=== PATIENT | male | born 1950 | race Caucasian/White ===

== ENCOUNTER 2018-09-22 09:39 | Inpatient (IN) | payer MEDICARE, BC ==
[~2018-09-22] VITALS: Ht 177.8 cm; Wt 73.9 kg
[2018-09-22] MEDS ORDERED: LIDOCAINE 2% JEL UROJET 10 ML MM ONE (09:52)
--- NOTE | 2018-09-22 09:55 | NUR ---
NOSEBLEED SINCE 0800 S/P GLF AFTER GETTING DIZZY. DENIES SYNCOPAL EPISODE, PT WENT TO [facility] AND WAS TOLD TO GO TO ER. PT STABLE
[2018-09-22] MEDS ORDERED: LIDOCAINE VISCOUS 2% UD 15 ML UDC MM ONE (10:00)
[2018-09-22 10:14] LABS: BASOPHILS % (AUTO) 0.3 % (0.0-2.0); EOSINOPHILS % (AUTO) 1.2 % (0.0-6.0); HEMATOCRIT 30 % (39-51); HEMOGLOBIN 9.8 g/dL (13.5-17.5); LYMPHOCYTES % (AUTO) 21.3 % (20.0-44.0); MEAN CORPUSCULAR HGB CONC 33 g/dl (31.0-36.0); MEAN CORPUSCULAR VOLUME 85 fL (80-96); MONOCYTES # (AUTO) 0.4 /CMM (0.1-1.30); MONOCYTES % (AUTO) 8.8 % (2.0-12.0); NEUTROPHILS # (AUTO) 3.2 /CMM (1.8-8.9); NEUTROPHILS % (AUTO) 68.4 % (43.0-81.0); PLATELET COUNT (AUTO) 143 /CMM (150-450); WHITE BLOOD COUNT (AUTO) 4.7 K/uL (4.3-11.0)
[2018-09-22] MEDS ORDERED: LIDOCAINE VISCOUS 2% UD 15 ML UDC ONE (10:14)
[2018-09-22 10:30] LABS: CALCIUM, SERUM 8.8 mg/dL (8.5-10.1); CREATININE 1.1 mg/dL (0.6-1.3); POTASSIUM 4.3 mmol/L (3.5-5.1)
--- NOTE | 2018-09-22 11:25 | NUR ---
PT WAS BEING DCM, WENT TO RESTOOM, REPORTED FEELING DIZZY, BEGAN TO SLIDE TO FALL , WAS CAUGHT BY EMT BHUPENDRA, PT CONFUSED AT THE TIME, PLACE IN [facility] BED, GIVEN O2, VITALS TAKEN NOW AAXO, DR. SOW AWARE. PT AWAKE AND STABLE
--- NOTE | 2018-09-22 11:29 | NUR ---
IV LINE INSERTED, LABS DRAWNED AND SENT TO LAB.
[2018-09-22] MEDS ORDERED: IV NS 0.9% 1,000 ML BAG IV ONE (11:30)
[2018-09-22] MEDS ORDERED: DOXA1TAB2 PO (11:55)
[2018-09-22] MEDS ORDERED: DUTA0.5C PO (11:55)
[2018-09-22] MEDS ORDERED: ATOR40TA PO (11:55)
[2018-09-22] MEDS ORDERED: METO25TA3 PO (11:55)
[2018-09-22] MEDS ORDERED: CITA20TA19 PO (11:55)
[2018-09-22] MEDS ORDERED: CLOP75TA15 PO (11:55)
[2018-09-22] MEDS ORDERED: BUPR1FIL SL (11:55)
[2018-09-22] MEDS ORDERED: ASCO500T9 PO (11:55)
[2018-09-22] MEDS ORDERED: FERR325T23 PO (11:55)
[2018-09-22] MEDS ORDERED: SENN-168 PO (11:55)
[2018-09-22] MEDS ORDERED: ASPI-1169 PO (11:55)
--- NOTE | 2018-09-22 13:00 | NUR ---
PT BEING TRANSFERED TO ROOM 320-2,REPORT GIVEN TO SHAWNEE CRUZ
[2018-09-22] MEDS ORDERED: HYDROCODONE/APAP 5/325MG 1 EACH TABLET PO PRN (15:00)
[2018-09-22] MEDS ORDERED: Z GUARD REMEDY 2 OZ OINT TP PRN (15:00)
[2018-09-22] MEDS ORDERED: ZOLPIDEM TARTRATE 5 MG TABLET PO PRN (15:00)
[2018-09-22] MEDS ORDERED: MAG HYDROX/AL HYDROX/SIMETH 30 ML UDC PO PRN (15:00)
[2018-09-22] MEDS ORDERED: MAGNESIUM HYDROXIDE 30 ML UDC PO PRN (15:00)
[2018-09-22] MEDS ORDERED: ONDANSETRON HCL/PF 4 MG/2 ML VIAL IVP PRN (15:00)
--- NOTE | 2018-09-22 15:10 | NUR ---
RECEIVED PATIENT FROM ER VIA [facility]. PATIENT A/OX4, ABLE TO MAKE NEEDS KNOWN. AMBULATORY WITH ASSIST, WALKED FROM [facility] TO BED. TOLERATED ROOM AIR. VITAL SIGNS STABLE. ALL BELONGINGS AT BEDSIDE, CHECKLIST DONE BY ROSEANN JONES. PLACE ON TELEMONITOR,SR 80. NOT IN ANY FORM OF DISTRESS, NO SOB. DENIED PAIN OR DISCOMFORT AT THIS TIME. IV ACCESS ON RIGHT AC GAUGE 20 INTACT AND PATENT. SKIN CHECK DONE, PICTURE TAKEN. NO SACRAL REDNESS, NO OPEN WOUNDS IN THE OTHER PARTS OF THE BODY, ABRASSION ON RIGHT SIDE OF THE NOSE NOTED DUE TO FALL AT HOME. KEPT PATIENT SAFE AND COMFORTABLE. BED IN LOW/LOCKED POSITION SIDERAISL UP, HOB ELEVATED. WILL MONITOR ACCORDINGLY.
[2018-09-22] MEDS ORDERED: IV 1/2NS 1000 ML 1,000 ML IV ONE (15:30)
[2018-09-22] MEDS: ACETAMINOPHEN 325 MG TABLET PO PRN ×2 (15:51→22:53)
[2018-09-22 15:52] LABS: IRON, SERUM 56 ug/dl (50-175); TOTAL IRON BINDING CAPACITY 282 ug/dl (250-450)
[2018-09-22 16:00] VITALS: BP 98/57
[2018-09-22] MEDS: CITALOPRAM HYDROBROMIDE 20 MG TABLET PO SCH (17:57)
--- NOTE | 2018-09-22 19:07 | NUR ---
RN CLOSING NOTES PATIENT IN STABLE CONDITION. ALL NEEDS ATTENDED AND PROVIDED. ALL MEDICATIONS ADMINISTERED ORDERED. KEPT PATIENT SAFE AND COMFORTABLE. BED IN LOW/LOCKED POSITION, SIDERAISL UPX2, CALL LIGHT IN REACH. HOB ELEVATED. ENDORSED TO NIGHT RN FOR ROSALIND.
--- NOTE | 2018-09-22 19:28 | NUR ---
GYRO COMPASS TESTER RECEIVED PT ON BED, A/O X 3, SR 68. NOT IN ANY FORM OF DISTRESS, RESPIRATIONS EVEN AND UNLABORED, NO SOB NOTED, STABLE CONDITION. SAFETY MEASURES IN PLACE. WILL CONTINUE TO MONITOR.
[2018-09-22 20:00] VITALS: BP 111/61
[2018-09-22 20:23] VITALS: BP 111/61
[2018-09-22] MEDS ORDERED: KEY,NONCONTROL,TO KEEP IN PYXI 1 EA MC ONE (20:25)
[2018-09-22] MEDS: SUBOXONE SL PRN (20:26)
[2018-09-22 23:50] VITALS: BP 149/56
[2018-09-23] VITALS (9 sets, daily range): BP systolic 74–149; BP diastolic 43–77
[2018-09-23] MEDS: SUBOXONE SL PRN ×3 (05:37→21:26)
[2018-09-23] MEDS: ACETAMINOPHEN 325 MG TABLET PO PRN ×3 (05:37→20:11)
--- NOTE | 2018-09-23 06:06 | NUR ---
RN CLOSING NOTE ASLEEP AND EASILY AWAKEN, SR 72 IN THE TELE MONITOR. R NARES NASAL RHINO PACKING INTACT, NOT IN DISTRESS. STABLE, RESPIRATIONS EVEN AND UNLABORED. NURSING CARE RENDERED, KEPT CLEAN AND DRY AND COMFORT, NEEDS ATTENDED AND ANTICIPATED. SAFETY MEASURES IN PLACE, CALL LIGHT WITHIN REACH. WILL ENDORSE TO THE NEXT SHIFT.
[2018-09-23 07:17] LABS: BASOPHILS % (AUTO) 0.3 % (0.0-2.0); HEMATOCRIT 25 % (39-51); HEMOGLOBIN 8.5 g/dL (13.5-17.5); LYMPHOCYTES # (AUTO) 1.6 /CMM (0.8-4.8); LYMPHOCYTES % (AUTO) 28.6 % (20.0-44.0); MEAN CORPUSCULAR HGB CONC 34 g/dl (31.0-36.0); MEAN CORPUSCULAR VOLUME 84 fL (80-96); MONOCYTES # (AUTO) 0.5 /CMM (0.1-1.30); MONOCYTES % (AUTO) 9.4 % (2.0-12.0); NEUTROPHILS # (AUTO) 3.3 /CMM (1.8-8.9); NEUTROPHILS % (AUTO) 60.7 % (43.0-81.0); PLATELET COUNT (AUTO) 129 /CMM (150-450); RED BLOOD CELL COUNT(AUTO) 2.95 MIL/uL (4.5-6.0); WHITE BLOOD COUNT (AUTO) 5.5 K/uL (4.3-11.0)
[2018-09-23 07:49] LABS: THYROID STIMULATING HORMONE 0.731 uIU/mL (0.358-3.74)
[2018-09-23 07:50] LABS: ALBUMIN 3.1 g/dL (3.4-5.0); BILIRUBIN,TOTAL 0.6 mg/dL (0.2-1.0); CALCIUM, SERUM 8.7 mg/dL (8.5-10.1); MAGNESIUM 1.8 mg/dL (1.8-2.4); POTASSIUM 3.6 mmol/L (3.5-5.1); TOTAL PROTEIN, SERUM 5.8 g/dL (6.4-8.2)
--- NOTE | 2018-09-23 07:55 | NUR ---
PAPERBOARD MACHINE OPERATOR OPENING NOTE RECEIVED PATIENT IN BED. SLEEPING, EASILY AROUSED WITH VERBAL STIMULI, ORIENTED X4. ON ROOM AIR, TOLERATING WELL. IN NO APPARENT DISTRESS OR DISCOMFORT AT THIS TIME. RESPIRATIONS EVEN AND UNLABORED. DENIES PAIN AND SOB AT THIS TIME. PATIENT IS ABLE TO COMMUNICATE NEEDS. ON TELE MONITORING WITH SR AND HR IN 60S. IV ACCESS ON RIGHT AC 18G, SL, PATENT AND INTACT. PATIENT KEPT CLEAN AND COMFORTABLE. SAFETY MEASURES IN PLACE, BED IN LOW LOCKED POSITION, SIDE RAILS UP X2, CALL LIGHT WITHIN EASY REACH. WILL CONTINUE TO MONITOR.
[2018-09-23] MEDS: DOXAZOSIN MESYLATE (1 MG) 1 MG TABLET PO SCH (08:41)
[2018-09-23] MEDS: DUTASTERIDE (0.5 MG) 0.5 MG CAPSULE PO SCH (08:41)
[2018-09-23] MEDS: ATORVASTATIN 40 MG TABLET PO SCH (08:41)
[2018-09-23] MEDS: FERROUS SULFATE (325 MG) 325 MG/TAB TABLET PO SCH (08:42)
[2018-09-23] MEDS: ASCORBIC ACID 500 MG TABLET PO SCH (08:42)
[2018-09-23] MEDS: PANTOPRAZOLE 40 MG TABLET.DR PO SCH (08:44)
--- NOTE | 2018-09-23 11:36 | NUR ---
WOUND CARE CONSULT: PT PRESENTS WITH DRY ABRASION TO SIDE OF NOSE, PRESENT ON ADMISSION. NO DRAINAGE NOTED. WILL SEE PRN.
[2018-09-23] MEDS ORDERED: KEY,NONCONTROL,TO KEEP IN PYXI 1 EA MC ONE ×4 (16:54→21:23)
[2018-09-23] MEDS: CITALOPRAM HYDROBROMIDE 20 MG TABLET PO SCH (17:06)
--- NOTE | 2018-09-23 17:13 | NUR ---
PATIENT REQUESTED HOME MEDICATION SUBOXON FOR NEUROPATHIC PAIN 5/10 IN LOWER EXTREMITIES. MEDICATION OBTAINED FROM [employer] WITH THE DEDICATED FATIMA. COUNTED 2 DOSES LEFT IN THE LOCKED BOX. REMOVED ONE DOSE. REMAINING 1 DOSE OF SUBOXON IN THE OMNICELL. RETURNED FATIMA TO THE [employer] AFTER USE.
--- NOTE | 2018-09-23 19:09 | NUR ---
MS RN RECEIVED PT ON BED, A/O X 3, NOT IN ANY FORM OF DISTRESS, RESPIRATIONS EVEN AND UNLABORED, NO SOB NOTED, STABLE CONDITION. SAFETY MEASURES IN PLACE. WILL CONTINUE TO MONITOR.
--- NOTE | 2018-09-23 19:34 | NUR ---
MS RN CLOSING NOTE PATIENT IN BED. ALERT ORIENTED X4. ON ROOM AIR, TOLERATING WELL. IN NO APPARENT DISTRESS OR DISCOMFORT AT THIS TIME. RESPIRATIONS EVEN AND UNLABORED. DENIES PAIN AND SOB AT THIS TIME. PATIENT IS ABLE TO COMMUNICATE NEEDS. IV ACCESS ON RIGHT AC 18G, SL, PATENT AND INTACT. PATIENT KEPT CLEAN AND COMFORTABLE. ALL NEEDS ATTENDED. SAFETY MEASURES IN PLACE, BED IN LOW LOCKED POSITION, SIDE RAILS UP X2, CALL LIGHT WITHIN EASY REACH. WILL ENDORSE TO PM NURSE FOR ROSALIND.
--- NOTE | 2018-09-24 06:09 | NUR ---
RN CLOSING NOTE ASLEEP AND EASILY AWAKEN, NOT IN DISTRESS. TOLERATING ROOM AIR 97%. NO EPISTAXIS. RESPIRATIONS EVEN AND UNLABORED. NURSING CARE RENDERED, KEPT CLEAN AND DRY AND COMFORT, NEEDS ATTENDED AND ANTICIPATED. SAFETY MEASURES IN PLACE, CALL LIGHT WITHIN REACH. WILL ENDORSE TO THE NEXT SHIFT.
--- NOTE | 2018-09-24 07:45 | NUR ---
MS RN OPENING NOTE PATIENT IN BED. ALERT ORIENTED X4. ON ROOM AIR, TOLERATING WELL. IN NO APPARENT DISTRESS OR DISCOMFORT AT THIS TIME. RESPIRATIONS EVEN AND UNLABORED. DENIES PAIN AND SOB AT THIS TIME. PATIENT IS ABLE TO COMMUNICATE NEEDS. NASAL PACK STILL IN PLACE, REPORTS MILD BLEEDING STILL. IV ACCESS ON RIGHT AC 18G, SL, PATENT AND INTACT. PATIENT KEPT CLEAN AND COMFORTABLE. ALL NEEDS ATTENDED. SAFETY MEASURES IN PLACE, BED IN LOW LOCKED POSITION, SIDE RAILS UP X2, CALL LIGHT WITHIN EASY REACH. WILL CONTINUE TO MONITOR.
[2018-09-24 08:00] VITALS: BP 126/90
[2018-09-24] MEDS: DOXAZOSIN MESYLATE (1 MG) 1 MG TABLET PO SCH (08:50)
[2018-09-24] MEDS: FERROUS SULFATE (325 MG) 325 MG/TAB TABLET PO SCH (08:50)
[2018-09-24] MEDS: DUTASTERIDE (0.5 MG) 0.5 MG CAPSULE PO SCH (08:50)
[2018-09-24] MEDS: ASCORBIC ACID 500 MG TABLET PO SCH (08:50)
[2018-09-24] MEDS: ATORVASTATIN 40 MG TABLET PO SCH (08:50)
[2018-09-24] MEDS: PANTOPRAZOLE 40 MG TABLET.DR PO SCH (08:50)
[2018-09-24] MEDS: ACETAMINOPHEN 325 MG TABLET PO PRN ×3 (08:58→22:28)
[2018-09-24 09:26] LABS: BASOPHILS % (AUTO) 0.5 % (0.0-2.0); EOSINOPHILS % (AUTO) 1.3 % (0.0-6.0); HEMATOCRIT 24 % (39-51); HEMOGLOBIN 8.1 g/dL (13.5-17.5); LYMPHOCYTES # (AUTO) 1.5 /CMM (0.8-4.8); LYMPHOCYTES % (AUTO) 30.6 % (20.0-44.0); MEAN CORPUSCULAR HGB CONC 34 g/dl (31.0-36.0); MEAN CORPUSCULAR VOLUME 85 fL (80-96); MONOCYTES # (AUTO) 0.5 /CMM (0.1-1.30); MONOCYTES % (AUTO) 10.4 % (2.0-12.0); NEUTROPHILS # (AUTO) 2.8 /CMM (1.8-8.9); NEUTROPHILS % (AUTO) 57.2 % (43.0-81.0); PLATELET COUNT (AUTO) 132 /CMM (150-450); RED BLOOD CELL COUNT(AUTO) 2.86 MIL/uL (4.5-6.0)
[2018-09-24] MEDS ORDERED: IV NS 0.9% 1,000 ML BAG IV ONE (09:30)
[2018-09-24 10:18] LABS: IRON, SERUM 51 ug/dl (50-175); TOTAL IRON BINDING CAPACITY 276 ug/dl (250-450)
--- NOTE | 2018-09-24 15:56 | NUR ---
PER DR. GRANDA HOLD FECAL OB AT THIS TIME. NO NEED TO COLLECT SAMPLE.
[2018-09-24 16:00] VITALS: BP 129/62
[2018-09-24] MEDS: CITALOPRAM HYDROBROMIDE 20 MG TABLET PO SCH (17:31)
[2018-09-24] MEDS: GLUCERNA SHAKE 237 ML CAN PO SCH (17:44)
--- NOTE | 2018-09-24 18:34 | NUR ---
MS RN CLOSING NOTE PATIENT IN BED. ALERT ORIENTED X4. ON ROOM AIR, TOLERATING WELL. IN NO APPARENT DISTRESS OR DISCOMFORT AT THIS TIME. RESPIRATIONS EVEN AND UNLABORED. DENIES PAIN AND SOB AT THIS TIME. PATIENT IS ABLE TO COMMUNICATE NEEDS. IV ACCESS ON RIGHT FA 20G, WITH FLUIDS RUNNING AT 125ML/HR, PATENT AND INTACT. PATIENT KEPT CLEAN AND COMFORTABLE. ALL NEEDS ATTENDED. SAFETY MEASURES IN PLACE, BED IN LOW LOCKED POSITION, SIDE RAILS UP X2, CALL LIGHT WITHIN EASY REACH. WILL ENDORSE TO PM NURSE FOR ROSALIND.
--- NOTE | 2018-09-24 19:00 | NUR ---
MS RN AWAKE WATCHING TV. A/O X 3, TOLERATING ROOM AIR 98%. NOT IN ANY FORM OF DISTRESS, RESPIRATIONS EVEN AND UNLABORED, NO SOB NOTED, STABLE CONDITION. SAFETY MEASURES IN PLACE. WILL CONTINUE TO MONITOR.
[2018-09-24 20:00] VITALS: BP 116/58
[2018-09-24] MEDS: IV NS 0.9% 1,000 ML IV PRN (20:20)
[2018-09-25] MEDS: IV NS 0.9% 1,000 ML IV PRN ×2 (04:33→21:10)
--- NOTE | 2018-09-25 06:09 | NUR ---
RN CLOSING NOTE PT IN BED ASLEEP AND EASILY AWAKEN, RESPIRATIONS EVEN AND UNLABORED. KEPT CLEAN AND DRY AND COMFORT, NEEDS ATTENDED AND ANTICIPATED. NURSING CARE RENDERED. NO S/S OF BLEEDING. SAFETY MEASURES IN PLACE, CALL LIGHT WITHIN REACH. WILL ENDORSE TO THE NEXT SHIFT.
[2018-09-25 07:43] LABS: BASOPHILS % (AUTO) 0.4 % (0.0-2.0); EOSINOPHILS % (AUTO) 2.1 % (0.0-6.0); HEMATOCRIT 22 % (39-51); HEMOGLOBIN 7.5 g/dL (13.5-17.5); LYMPHOCYTES # (AUTO) 1.5 /CMM (0.8-4.8); LYMPHOCYTES % (AUTO) 36.1 % (20.0-44.0); MEAN CORPUSCULAR HGB CONC 34 g/dl (31.0-36.0); MEAN CORPUSCULAR VOLUME 85 fL (80-96); MONOCYTES # (AUTO) 0.5 /CMM (0.1-1.30); MONOCYTES % (AUTO) 10.7 % (2.0-12.0); NEUTROPHILS # (AUTO) 2.1 /CMM (1.8-8.9); NEUTROPHILS % (AUTO) 50.7 % (43.0-81.0); PLATELET COUNT (AUTO) 123 /CMM (150-450); RED BLOOD CELL COUNT(AUTO) 2.61 MIL/uL (4.5-6.0); WHITE BLOOD COUNT (AUTO) 4.2 K/uL (4.3-11.0)
--- NOTE | 2018-09-25 07:47 | NUR ---
MS RN OPENING NOTE PATIENT IN BED. ALERT ORIENTED X4. ON ROOM AIR, TOLERATING WELL. IN NO APPARENT DISTRESS OR DISCOMFORT AT THIS TIME. RESPIRATIONS EVEN AND UNLABORED. DENIES PAIN AND SOB AT THIS TIME. PATIENT IS ABLE TO COMMUNICATE NEEDS. NASAL PACK STILL IN PLACE, REPORTS MILD BLEEDING STILL. IV ACCESS ON RIGHT RIGHT FA 20G, WITH FLUIDS RUNNING AT 125ML/HR, PATENT AND INTACT. PATIENT KEPT CLEAN AND COMFORTABLE. ALL NEEDS ATTENDED. SAFETY MEASURES IN PLACE, BED IN LOW LOCKED POSITION, SIDE RAILS UP X2, CALL LIGHT WITHIN EASY REACH. WILL CONTINUE TO MONITOR.
[2018-09-25 07:59] LABS: ALBUMIN 2.9 g/dL (3.4-5.0); BILIRUBIN,TOTAL 0.3 mg/dL (0.2-1.0); CALCIUM, SERUM 8.6 mg/dL (8.5-10.1); CREATININE 0.9 mg/dL (0.6-1.3); PHOSPHORUS 3.6 mg/dL (2.5-4.9); POTASSIUM 4.9 mmol/L (3.5-5.1); TOTAL PROTEIN, SERUM 5.5 g/dL (6.4-8.2)
[2018-09-25 08:00] VITALS: BP 132/67
[2018-09-25] MEDS: ASCORBIC ACID 500 MG TABLET PO SCH (08:48)
[2018-09-25] MEDS: DUTASTERIDE (0.5 MG) 0.5 MG CAPSULE PO SCH (08:48)
[2018-09-25] MEDS: ATORVASTATIN 40 MG TABLET PO SCH (08:48)
[2018-09-25] MEDS: PANTOPRAZOLE 40 MG TABLET.DR PO SCH (08:48)
[2018-09-25] MEDS: ACETAMINOPHEN 325 MG TABLET PO PRN ×2 (08:49→17:16)
[2018-09-25] MEDS: DOXAZOSIN MESYLATE (1 MG) 1 MG TABLET PO SCH (08:49)
[2018-09-25] MEDS: FERROUS SULFATE (325 MG) 325 MG/TAB TABLET PO SCH (08:49)
[2018-09-25] MEDS: GLUCERNA SHAKE 237 ML CAN PO SCH ×3 (08:49→17:00)
[2018-09-25 16:00] VITALS: BP 147/72
[2018-09-25] MEDS: CITALOPRAM HYDROBROMIDE 20 MG TABLET PO SCH (17:17)
--- NOTE | 2018-09-25 19:28 | NUR ---
MS RN PT RECEIVE IN BED. A/O X 3. NOT IN ANY FORM OF DISTRESS, RESPIRATIONS EVEN AND UNLABORED, NO SOB NOTED, STABLE CONDITION. SAFETY MEASURES IN PLACE. WILL CONTINUE TO MONITOR.
[2018-09-25 20:00] VITALS: BP 141/67
[2018-09-25] MEDS ORDERED: BISACODYL (5 MG) 5 MG TABLET.DR PO ONE (21:00)
[2018-09-25] MEDS ORDERED: PEG 3350/NA SULF,BICARB,CL/KCL 4,000 ML BOTTLE PO ONE (21:00)
--- NOTE | 2018-09-26 06:01 | NUR ---
RN CLOSING NOTE AWAKE IN BED WATCHING TV, MAINTAINS NPO, CONSUMED GO-KRISS PREP DEFECATION IS BROWNISH LIQUID. WILL MTR. MAINTAINS NPO MIDNIGHT. NO COMPLAIN OF PAIN, NO S/S OF BLEEDING. KEPT CLEAN AND DRY AND COMFORT, NEEDS ATTENDED AND ANTICIPATED. NURSING CARE RENDERED. . SAFETY MEASURES IN PLACE, CALL LIGHT WITHIN REACH. WILL ENDORSE TO THE NEXT SHIFT.
[2018-09-26] MEDS: IV NS 0.9% 1,000 ML IV PRN (06:23)
[2018-09-26 07:23] LABS: BASOPHILS % (AUTO) 0.4 % (0.0-2.0); EOSINOPHILS % (AUTO) 2.2 % (0.0-6.0); HEMATOCRIT 22 % (39-51); HEMOGLOBIN 7.4 g/dL (13.5-17.5); LYMPHOCYTES # (AUTO) 1.4 /CMM (0.8-4.8); LYMPHOCYTES % (AUTO) 35.7 % (20.0-44.0); MEAN CORPUSCULAR HGB CONC 34 g/dl (31.0-36.0); MEAN CORPUSCULAR VOLUME 86 fL (80-96); MONOCYTES # (AUTO) 0.4 /CMM (0.1-1.30); MONOCYTES % (AUTO) 10.4 % (2.0-12.0); NEUTROPHILS % (AUTO) 51.3 % (43.0-81.0); PLATELET COUNT (AUTO) 135 /CMM (150-450); RED BLOOD CELL COUNT(AUTO) 2.55 MIL/uL (4.5-6.0); WHITE BLOOD COUNT (AUTO) 3.9 K/uL (4.3-11.0)
[2018-09-26 07:28] LABS: ALBUMIN 2.9 g/dL (3.4-5.0); BILIRUBIN,TOTAL 0.4 mg/dL (0.2-1.0); CALCIUM, SERUM 8.8 mg/dL (8.5-10.1); CREATININE 0.9 mg/dL (0.6-1.3); PHOSPHORUS 3.7 mg/dL (2.5-4.9); POTASSIUM 4.7 mmol/L (3.5-5.1); TOTAL PROTEIN, SERUM 5.7 g/dL (6.4-8.2)
[2018-09-26] MEDS: PANTOPRAZOLE 40 MG TABLET.DR PO SCH (07:30)
[2018-09-26 08:00] VITALS: BP 133/69
[2018-09-26] MEDS: GLUCERNA SHAKE 237 ML CAN PO SCH ×3 (08:00→17:00)
[2018-09-26] MEDS: DUTASTERIDE (0.5 MG) 0.5 MG CAPSULE PO SCH (09:00)
[2018-09-26] MEDS: ATORVASTATIN 40 MG TABLET PO SCH (09:00)
[2018-09-26] MEDS: DOXAZOSIN MESYLATE (1 MG) 1 MG TABLET PO SCH (09:00)
[2018-09-26] MEDS: ASCORBIC ACID 500 MG TABLET PO SCH (09:00)
[2018-09-26] MEDS: ACETAMINOPHEN 325 MG TABLET PO PRN (15:21)
[2018-09-26 16:00] VITALS: BP 142/82
[2018-09-26] MEDS: CITALOPRAM HYDROBROMIDE 20 MG TABLET PO SCH (18:50)
[2018-09-26 20:00] VITALS: BP 134/64
--- NOTE | 2018-09-26 20:05 | NUR ---
RN MS OPENING NOTES RECEIVED PT IN BED, AWAKE ALERT ORIENTED X4. BREATHING EVEN AND UNLABORED ON ROOM AIR. NO COUGH OR CONGESTION, NO SOB. IV ACCESS ON THE R FA 20G WITH NS @125ML/HR. RHINO ROCKET IN PLACE. NO COMPLAINT OF PAIN OR DISCOMFORT AT THE MOMENT. BED IN LOWEST LOCKED POSITION, CALL LIGHT WITHIN REACH AT ALL TIMES. WILL CONTINUE TO MONITOR.
[2018-09-27] MEDS: IV NS 0.9% 1,000 ML IV PRN (01:56)
--- NOTE | 2018-09-27 06:16 | NUR ---
RN MS CLOSING NOTES PT REMAINS IN BED, AWAKE ALERT ORIENTED X4. BREATHING EVEN AND UNLABORED ON ROOM AIR. NO COUGH OR CONGESTION, NO SOB. IV ACCESS ON THE R FA 20G WITH NS @125ML/HR. RHINO ROCKET IN PLACE. NPO FOR PROCEDURE IN THE AM. NO COMPLAINT OF PAIN OR DISCOMFORT AT THE MOMENT. BED IN LOWEST LOCKED POSITION, CALL LIGHT WITHIN REACH AT ALL TIMES. WILL WILL ENDORSE TO DAY NURSE FOR ROSALIND
[2018-09-27 06:24] LABS: BASOPHILS % (AUTO) 0.4 % (0.0-2.0); EOSINOPHILS % (AUTO) 2.5 % (0.0-6.0); HEMATOCRIT 21 % (39-51); HEMOGLOBIN 7.1 g/dL (13.5-17.5); LYMPHOCYTES # (AUTO) 1.1 /CMM (0.8-4.8); LYMPHOCYTES % (AUTO) 31.4 % (20.0-44.0); MEAN CORPUSCULAR HGB CONC 34 g/dl (31.0-36.0); MEAN CORPUSCULAR VOLUME 86 fL (80-96); MONOCYTES # (AUTO) 0.4 /CMM (0.1-1.30); MONOCYTES % (AUTO) 12.5 % (2.0-12.0); NEUTROPHILS # (AUTO) 1.9 /CMM (1.8-8.9); NEUTROPHILS % (AUTO) 53.2 % (43.0-81.0); PLATELET COUNT (AUTO) 123 /CMM (150-450); RED BLOOD CELL COUNT(AUTO) 2.43 MIL/uL (4.5-6.0); WHITE BLOOD COUNT (AUTO) 3.5 K/uL (4.3-11.0)
[2018-09-27 06:49] LABS: ALBUMIN 2.9 g/dL (3.4-5.0); BILIRUBIN,TOTAL 0.4 mg/dL (0.2-1.0); CALCIUM, SERUM 8.6 mg/dL (8.5-10.1); CREATININE 0.9 mg/dL (0.6-1.3); MAGNESIUM 2.1 mg/dL (1.8-2.4); PHOSPHORUS 4.4 mg/dL (2.5-4.9); POTASSIUM 4.6 mmol/L (3.5-5.1); TOTAL PROTEIN, SERUM 5.5 g/dL (6.4-8.2)
[2018-09-27] MEDS: PANTOPRAZOLE 40 MG TABLET.DR PO SCH (07:30)
[2018-09-27 08:00] VITALS: BP 131/71
[2018-09-27] MEDS: GLUCERNA SHAKE 237 ML CAN PO SCH ×3 (08:00→17:16)
[2018-09-27] MEDS: DUTASTERIDE (0.5 MG) 0.5 MG CAPSULE PO SCH (09:42)
[2018-09-27] MEDS: ASCORBIC ACID 500 MG TABLET PO SCH (09:43)
[2018-09-27] MEDS: DOXAZOSIN MESYLATE (1 MG) 1 MG TABLET PO SCH (09:43)
[2018-09-27] MEDS: ATORVASTATIN 40 MG TABLET PO SCH (09:45)
[2018-09-27] MEDS ORDERED: PANT40TA2 PO (12:25)
[2018-09-27 16:00] VITALS: BP 143/64
[2018-09-27] MEDS: CITALOPRAM HYDROBROMIDE 20 MG TABLET PO SCH (18:06)
== END 2018-09-27 18:50 | disposition home or self-care (01) | DRG 379 ==
LOC: ER 09:42 → TELE 12:40 → MED 09-23 10:12
PROVIDERS: ADMIT Student in an Organized Health Care Education/Training Program
PROC: 0DBM8ZX Excision of Descending Colon, Via Natural or Artificial Opening Endoscopic, Diagnostic (ICD-10-PCS; principal; 2018-09-27)
PROC: 0DB78ZX Excision of Stomach, Pylorus, Via Natural or Artificial Opening Endoscopic, Diagnostic (ICD-10-PCS; 2018-09-27)
DX: K29.71 Gastritis, unspecified, with bleeding (principal); E86.0 Dehydration; K25.4 Chronic or unspecified gastric ulcer with hemorrhage; R55 Syncope and collapse; D64.9 Anemia, unspecified; R04.0 Epistaxis; Z88.2 Allergy status to sulfonamides; I25.10 Atherosclerotic heart disease of native coronary artery without angina pectoris; N40.0 Benign prostatic hyperplasia without lower urinary tract symptoms; I10 Essential (primary) hypertension; E11.9 Type 2 diabetes mellitus without complications; Z87.01 Personal history of pneumonia (recurrent); I65.21 Occlusion and stenosis of right carotid artery; Z95.5 Presence of coronary angioplasty implant and graft; D12.4 Benign neoplasm of descending colon; K64.8 Other hemorrhoids; Z79.82 Long term (current) use of aspirin; Z82.49 Family history of ischemic heart disease and other diseases of the circulatory system; Z87.11 Personal history of peptic ulcer disease; Z87.891 Personal history of nicotine dependence
CPT/HCPCS: 36415; 70450-TC; 71045-TC; 80048-TC; 80053-TC; 80061-TC; 82962-TC; 83540-TC; 83735-TC; 84100-TC; 84443-TC; 84484-TC; 85025-TC; 85730-TC; 87081-TC; 88305-TC; 88313-TC; 88342; 93307-TC; 93880-TC; 97116-TC; 97530-TC; A6402; G0378; J2704; J3490; J7030; J7042

== ENCOUNTER 2019-02-02 19:14 | Emergency (ER) | payer MEDICARE, BC ==
[~2019-02-02] VITALS: Ht 177.8 cm; Wt 71.7 kg
[~2019-02-02 19:14] MED LIST: ASCO500T9 PO; ATOR40TA PO; BUPR1FIL SL; CITA20TA19 PO; DOXA1TAB2 PO; DUTA0.5C PO; FERR325T23 PO; METO25TA3 PO; PANT40TA2 PO; SENN-168 PO
[2019-02-02 20:19] LABS: APPEARANCE,URINE Clear (CLEAR); BILIRUBIN,URINE SMALL (NEGATIVE); BLOOD, URINE Negative Ery/uL (NEGATIVE); COLOR,URINE Yellow (YELLOW); KETONES,URINE Trace (NEGATIVE); LEUKOCYTE ESTERASE ,URINE Negative (NEGATIVE); NITRITE, URINE Negative (NEGATIVE); PH,URINE 5.5 (5.0-8.0); PROTEIN,URINE 100 mg/dl (NEGATIVE); UGLUCOSE Negative (NEGATIVE); UROBILINOGEN,URINE 0.2 EU/dL (0.2)
--- NOTE | 2019-02-02 20:20 | NUR ---
BIB SELF C/O SORE THROAT SINCE WEDNESDAY, FEVER AND COUGH. TEMP:99, PLACED SYLVIA MONITOR, BLOOD AND URINE COLLECTED AND SENT TO THE LAB. WILL CONT TO MONITOR
[2019-02-02 20:25] LABS: BACTERIA,URINE Few /HPF (None Seen); RBC,URINE 0-2 /HPF (0-2); SQUAMOUS EPITHELIAL CELL,UR Few /HPF (None Seen); WBC,URINE 0-2 /HPF (0-3)
[2019-02-02 20:26] LABS: BASOPHILS % (AUTO) 0.2 % (0.0-2.0); EOSINOPHILS % (AUTO) 1.1 % (0.0-6.0); HEMATOCRIT 39 % (39-51); HEMOGLOBIN 13.1 g/dL (13.5-17.5); LYMPHOCYTES # (AUTO) 0.2 /CMM (0.8-4.8); LYMPHOCYTES % (AUTO) 5.3 % (20.0-44.0); MEAN CORPUSCULAR HGB CONC 33 g/dl (31.0-36.0); MEAN CORPUSCULAR VOLUME 86 fL (80-96); MONOCYTES # (AUTO) 0.2 /CMM (0.1-1.30); MONOCYTES % (AUTO) 6.8 % (2.0-12.0); NEUTROPHILS # (AUTO) 3.1 /CMM (1.8-8.9); NEUTROPHILS % (AUTO) 86.6 % (43.0-81.0); PLATELET COUNT (AUTO) 115 /CMM (150-450); RED BLOOD CELL COUNT(AUTO) 4.55 MIL/uL (4.5-6.0); WHITE BLOOD COUNT (AUTO) 3.6 K/uL (4.3-11.0)
[2019-02-02] MEDS ORDERED: IV NS 0.9% 1,000 ML BAG IV ONE (20:30)
[2019-02-02 20:36] LABS: CALCIUM, SERUM 8.7 mg/dL (8.5-10.1); CARBON DIOXIDE 28 mmol/L (21-32); CHLORIDE 101 mmol/L (98-107); CREATININE 1.4 mg/dL (0.6-1.3); GLUCOSE 114 mg/dL (74-106); POTASSIUM 3.9 mmol/L (3.5-5.1); SODIUM SERUM 136 mmol/L (136-145); UREA NITROGEN, BLOOD 30 mg/dL (7-18)
[2019-02-02 20:40] LABS: ALANINE AMINOTRANSFERASE 27 U/L (12-78); ALBUMIN 3.1 g/dL (3.4-5.0); ALKALINE PHOSPHATASE 63 U/L (46-116); ASPARTATE AMINOTRANSFERASE 22 U/L (15-37); BILIRUBIN,DIRECT 0.3 mg/dL (0.0-0.2); BILIRUBIN,TOTAL 1.2 mg/dL (0.2-1.0); TOTAL PROTEIN, SERUM 6.4 g/dL (6.4-8.2)
[2019-02-02 21:13] VITALS: BP 113/63
== END 2019-02-02 21:22 | disposition home or self-care (01) ==
LOC: ER 19:14
DX: R50.9 Fever, unspecified (principal); R11.2 Nausea with vomiting, unspecified; E11.9 Type 2 diabetes mellitus without complications; I10 Essential (primary) hypertension; R00.0 Tachycardia, unspecified; Z95.5 Presence of coronary angioplasty implant and graft; Z98.890 Other specified postprocedural states; Z88.2 Allergy status to sulfonamides
CPT/HCPCS: 36415; 71045; 80048; 80076; 81001; 83605; 84484; 85025; 85730; 87040 ×2; 87077; 87086; 93005; 96360; 99284; J7030; 81000-TC